=== PATIENT | female | born 1985 | race Caucasian/White ===

== ENCOUNTER 2023-06-20 15:00 | Outpatient (RCR) | payer OTHER, SELFPAY | END 2023-07-04 08:17 | disposition home or self-care (01) | LOC: HO.PT 15:00 | PROVIDERS: PCP Nurse Practitioner Family; Visit Provider Nurse Practitioner Family | DX: N94.10 Unspecified dyspareunia (principal) | CPT/HCPCS: 97110; 97112; 97140; 97162 ==

== ENCOUNTER 2025-03-25 16:48 | Outpatient (RCR) | payer BC, SELFPAY | END 2025-03-26 13:53 | disposition home or self-care (01) | LOC: HO.PT 16:48 | PROVIDERS: PCP Nurse Practitioner Family | DX: M54.50 Low back pain, unspecified (principal); M62.830 Muscle spasm of back | CPT/HCPCS: 97110; 97112; 97140; 97161; 97530 ==